=== PATIENT | female | born 1960 | race Hispanic/Latino ===

== ENCOUNTER 2022-12-21 09:23 | Day surgery (SDC) | payer OTHER ==
[2022-12-20 15:37] VITALS: BMI 28.8
[2022-12-21] MEDS ORDERED: Bupivacaine 0.25% HCL 30 ML VIAL ONE (10:31)
[2022-12-21] MEDS ORDERED: PROPOFOL 20 ML ONE (11:24)
[2022-12-21] MEDS ORDERED: fentaNYL 50 mcg/mL 1 mL Vial ONE ×2 (11:24→13:23)
[2022-12-21] MEDS ORDERED: Lidocaine 1% PF 5 ML VIAL ONE (11:25)
[2022-12-21] MEDS ORDERED: CEFAZOLIN 2 GM VIAL ONE (11:31)
[2022-12-21] MEDS ORDERED: ePHEDrine Sulfate 50 MG/10 ML VIAL ONE (12:00)
[2022-12-21] MEDS ORDERED: Ondansetron PF 4 MG/2 ML Vial ONE (12:01)
[2022-12-21] MEDS ORDERED: Dexamethasone 4 mg/ml Vial ONE (12:01)
== END 2022-12-21 14:30 | disposition home or self-care (01) ==
LOC: CSHSDC 09:23
PROVIDERS: ATTEND Podiatrist Foot & Ankle Surgery
PROC: 0SPG04Z Removal of Internal Fixation Device from Left Ankle Joint, Open Approach (ICD-10-PCS; principal; 2022-12-21)
PROC: 0KNW0ZZ Release Left Foot Muscle, Open Approach (ICD-10-PCS; principal; 2022-12-21)
DX: T84.84XA Pain due to internal orthopedic prosthetic devices, implants and grafts, initial encounter (principal); T84.428 Displacement of other internal orthopedic devices, implants and grafts; M72.2 Plantar fascial fibromatosis; I10 Essential (primary) hypertension; E78.00 Pure hypercholesterolemia, unspecified; M71.572 Other bursitis, not elsewhere classified, left ankle and foot; J44.9 Chronic obstructive pulmonary disease, unspecified; G47.33 Obstructive sleep apnea (adult) (pediatric); Z79.899 Other long term (current) drug therapy; Z88.6 Allergy status to analgesic agent; Z88.5 Allergy status to narcotic agent; Z88.8 Allergy status to other drugs, medicaments and biological substances; Y79.2 Prosthetic and other implants, materials and accessory orthopedic devices associated with adverse incidents
CPT/HCPCS: J1100; J2405; J2704; J3010; S0020